=== PATIENT | male | born 1975 | race Caucasian/White ===

== ENCOUNTER 2025-02-01 13:26 | Day surgery (SDC) | payer BC ==
[2025-02-01] MEDS ORDERED: dexAMETHasone sodium phosphate IJ ONE (13:27)
[2025-02-01] MEDS ORDERED: Sodium Chloride 0.9(Preservative Free) 10 ML IJ ONE (13:27)
[2025-02-01] MEDS ORDERED: propofoL IV ONE (15:32)
--- NOTE | 2025-02-01 16:34 | XRAY ---
Indication: Right L4-S1 transforaminal TOMMIE. Intraoperative fluoroscopy provided for 21 seconds. 4 digital spot image submitted for interpretation demonstrates posterior needle tips projecting over expected right L4 and L5 nerve roots. Small amount of contrast injected for needle tip placement. Correlate with intraoperative findings/report.
--- NOTE | 2025-02-01 16:36 | XRAY ---
21 seconds of fluoroscopy was used in surgery for a right L4-S1 transforaminal TOMMIE.
== END 2025-02-01 16:27 | disposition home or self-care (01) ==
LOC: SDC-PAIN 13:26
PROVIDERS: ATTEND Psychiatry & Neurology Pain Medicine
DX: M54.16 Radiculopathy, lumbar region (principal)
CPT/HCPCS: 64483; 64484; 72100; 77003; J1100; J2704; Q9966

== ENCOUNTER 2025-06-22 10:55 | Day surgery (SDC) | payer BC ==
[2025-06-22] MEDS ORDERED: Sodium Chloride 0.9(Preservative Free) 10 ML IJ ONE (10:56)
[2025-06-22] MEDS ORDERED: Depo-Medrol 40 MG/ML IM ONE (10:56)
[2025-06-22] MEDS ORDERED: propofoL IV ONE (13:17)
[2025-06-22] MEDS ORDERED: Lactated Ringers 1,000 ML IV ONE (14:32)
--- NOTE | 2025-06-22 15:19 | XRAY ---
Indication: Caudal TOMMIE. Intraoperative fluoroscopy provided for 15 seconds. 2 digital spot image submitted for interpretation demonstrates caudal needle tip projecting mid sacrum. Small amount of contrast injected for needle tip placement. Correlate with intraoperative findings/report.
--- NOTE | 2025-06-22 22:14 | XRAY ---
15 seconds of fluoroscopy was used in surgery for a caudal TOMMIE.
== END 2025-06-22 13:45 | disposition home or self-care (01) ==
LOC: SDC-PAIN 10:55
PROVIDERS: ATTEND Psychiatry & Neurology Pain Medicine
DX: M54.16 Radiculopathy, lumbar region (principal)